=== PATIENT | male | born 1940 | race Caucasian/White ===

== ENCOUNTER 2017-11-15 13:48 | Emergency (ER) | payer MEDICARE, OTHER ==
--- NOTE | 2017-11-15 14:07 | ED ---
HPI Chest Pain - HPI Summary HPI Summary: This pt is a 77 y/o male presenting to [facility] c/o chest pressure for the past 4 days. Pt describes chest pressure as constant "gas in your chest that you can't bounce out." He notes he has intermittent "stings" sharp pain in his chest. Pt states his chest pain is not related to exertion it is most noticeable while at rest. He reports palpitations and nausea. Denies vomiting, diaphoresis. Pt notes he played golf this morning and still had chest pressure. PMHx afib, HTN, pacemaker, PR. During his past PR pt had severe chest pain underneath his ribs that was characterized as sharp. He thought it was gas but it ended up being an PR. He went to the medical lab assistant and was told his veins were cleared. His last chemical stress test was done by Dr. Guzman 3 months ago, that resulted normal. Pt is currently on Coumadin. - History of Current Complaint Chief Complaint: EDChestPainROMI Time Seen by Provider: 11/15/17 13:59 Hx Obtained From: Patient Onset/Duration: Started Days Ago, Still Present Timing: Lasting Days Current Severity: Mild Chest Pain Location: Diffuse Chest Pain Radiates: No Character: Pressure/Squeezing - Pressure, Sharp/Stabbing - "stings" intermittently Aggravating Factor(s): Nothing Alleviating Factor(s): Nothing Associated Signs and Symptoms: Positive: Chest Pain, Nausea, Palpitations. Negative: Shortness of Breath, Fever, Chills, Vomiting - Allergy/Home Medications Allergies/Adverse Reactions: Allergies Allergy/AdvReac Type Severity Reaction Status Date / Time bee venom protein (honey bee) Allergy Swelling Verified 11/15/17 14:08 PMH/Surg Hx/FS Hx/Imm Hx Cardiovascular History: Reports: Hx Angina - HX, Hx Atrial Fibrillation, Hx Hypercholesterolemia, Hx Hypertension, Hx Myocardial Infarction, Other Cardiovascular Problems/Disorders - Atrial Fib; Has a pacemaker Respiratory History: Reports: Hx Sleep Apnea - current CPAP user, compliant - Surgical History Surgery Procedure, Year, and Place: Tonsillectomy Infectious Disease History: No Infectious Disease History: Denies: Traveled Outside the [place] in Last 30 Days - Family History Known Family History: Positive: Hypertension Family History: Esophageal CA. Prostate CA. IBS - Social History Alcohol Use: Daily Alcohol Amount: 1-2/D Substance Use Type: Reports: None Smoking Status (MU): Never Smoked Tobacco Review of Systems Negative: Fever, Chills Positive: Palpitations, Chest Pain Negative: Shortness Of Breath Positive: Nausea. Negative: Vomiting All Other Systems Reviewed And Are Negative: Yes Physical Exam - Summary Physical Exam Summary: VITAL SIGNS: Reviewed. GENERAL: Patient is a well-developed and nourished male who is lying comfortable in the stretcher. Patient is not in any acute respiratory distress. HEAD AND FACE: No signs of trauma. No ecchymosis, hematomas or skull depressions. No sinus tenderness. EYES: PERRLA, EOMI x 2, No injected conjunctiva, no nystagmus. EARS: Hearing grossly intact. Ear canals and tympanic membranes are within normal limits. MOUTH: Oropharynx within normal limits. NECK: Supple, trachea is midline, no adenopathy, no JVD, no carotid bruit, no c- spine tenderness, neck with full ROM. CHEST: Symmetric, no tenderness at palpation LUNGS: Clear to auscultation bilaterally. No wheezing or crackles. CVS: Regular rate and rhythm, S1 and S2 present, no murmurs or gallops appreciated. ABDOMEN: Soft, non-tender. No signs of distention. No rebound, no guarding, and no masses palpated. Bowel sounds are normal. EXTREMITIES: FROM in all major joints, no edema, no cyanosis or clubbing. NEURO: Alert and oriented x 3. No acute neurological deficits. Speech is normal and follows commands. SKIN: Dry and warm Triage Information Reviewed: Yes Vital Signs On Initial Exam: Initial Vitals Temp Pulse Resp BP Pulse Ox 98.8 F 70 16 150/86 96 11/15/17 13:52 11/15/17 13:52 11/15/17 13:52 11/15/17 13:52 11/15/17 13:52 Vital Signs Reviewed: Yes Diagnostics - Vital Signs Vital Signs Temp Pulse Resp BP Pulse Ox 11/15/17 13:52 98.8 F 70 16 150/86 96 - Laboratory Result Diagrams: 11/15/17 14:27 11/15/17 14:27 Lab Statement: Any lab studies that have been ordered have been reviewed, and results considered in the medical decision making process. - Radiology Chest XR Xray Interpretation: No Acute Changes - IMPRESSION: No evidence for acute intrathoracic disease. Dr. Preciado has reviewed this report. Radiology Interpretation Completed By: Radiologist - EKG 13:54 Cardiac Rate: NL - at 70 bpm EKG Interpretation: ventricular paced rhythm at 70 bpm. EKG Comparison: No Significant Change - similar to prior on 09/03/10. Re-Evaluation - Re-Evaluation First Eval Re-Evaluation Time: 15:26 Comment: I reviewed lab and XR results with pt. Second troponin pending. Second Eval Re-Evaluation Time: 17:45 Comment: I reviewed the second trop negative results with the pt. He will be discharged home. Chest Pain Course/Dx - Course Assessment/Plan: This pt is a 77 y/o male presenting to [facility] c/o chest pressure for the past 4 days. Pt describes chest pressure as constant "gas in your chest that you can't bounce out." He notes he has intermittent "stings" sharp pain in his chest. Pt states his chest pain is not related to exertion it is most noticeable while at rest. He reports palpitations and nausea. Denies vomiting, diaphoresis. Pt notes he played golf this morning and still had chest pressure. PMHx afib, HTN, pacemaker, PR. During his past PR pt had severe chest pain underneath his ribs that was characterized as sharp. He thought it was gas but it ended up being an PR. He went to the medical lab assistant and was told his veins were cleared. His last chemical stress test was done by Dr. Guzman 3 months ago, that resulted normal. Pt is currently on Coumadin. Blood work without any significant abnormality. INR is 2.6 which is therapeutic. Glucose 137. First troponin is 0.01 and BMP is 178. Chest x-ray impression: No evidence for acute intrathoracic disease. Patient continues to be asymptomatic. He doesnt have any chest pain. Second troponin 4 hours apart is also 0.01. The patient continues to be asymptomatic. His HEART score is equal to 1. At this time I am comfortable sending the patient home since the patient had a stress test less than 3 months ago and it was negative. However I recommended for the patient to follow up with Dr. Guzman in the next 2 days. He was also recommended not to do any exertion or vigorous activity. The patient understands and agrees. He was also recommended to return to the emergency department if he develops any chest pain, shortness of breath or palpitations. The patient understands and agrees. He is hemodynamically stable , alert and oriented x3. - Chest Pain Differential Diagnosis/HQI/PQRI: Acute PR, ACS, Angina, CHF, Chest Wall, GI Disease, Lower Respiratory Infection - Diagnoses Provider Diagnoses: Chest pain Discharge - Sign-Out/Discharge Documenting (check all that apply): Patient Departure - Discharge home - Discharge Plan Condition: Stable Disposition: HOME Patient Education Materials: Chest Pain (ED) Referrals: La Nena Rojas MD [Primary Care Provider] - Additional Instructions: FOLLOW UP WITH YOUR PRIMARY CARE PROVIDER WITHIN ONE WEEK FOR HIGH BLOOD PRESSURE NOTED TODAY. RETURN TO THE ED FOR ANY NEW OR WORSENING SYMPTOMS. - Billing Disposition and Condition Condition: STABLE Disposition: Home - Attestation Statements Document Initiated by Santy: Yes Documenting Scribe: Nichole Avila Provider For Whom Santy is Documenting (Include Credential): Jonathan Preciado MD Scribe Attestation: Nichole Roque, scribed for Jonathan Preciado MD on 11/17/17 at 0751. Scribe Documentation Reviewed: Yes Provider Attestation: The documentation as recorded by the Nichole toscano accurately reflects the service I personally performed and the decisions made by , Jonathan Preciado MD
[2017-11-15 14:41] LABS: ABS Basophils 0.1 10^3/ul (0-0.2); ABS Eosinophils 0.1 10^3/ul (0-0.6); ABS Lymphocytes 1.3 10^3/ul (1.0-4.8); ABS Monocytes 0.9 10^3/ul (0-0.8); ABS Neutrophils 5.3 10^3/ul (1.5-7.7); ABS Nucleated RBC 0 10^3/ul; Eosinophil % 1.1 % (0-6); Hematocrit 41 % (42-52); Hemoglobin 14.1 g/dl (14.0-18.0); Lymphocyte % 17.3 % (25-47); Mean Corpuscular HGB Conc 34 g/dl (31-36); Mean Corpuscular Hemoglobin 33 pg (27-31); Mean Corpuscular Volume 98 fL (80-94); Mean Platelet Volume 8.4 um3 (7.4-10.4); Nucleated Red Blood Cells % 0.1; Platelet Count 207 10^3/ul (150-450); Red Blood Count 4.23 10^6/ul (4.00-5.40); Red Cell Distribution Width 13 % (10.5-15); White Blood Count 7.6 10^3/ul (3.5-10.8)
[2017-11-15 14:48] LABS: INR 2.6 (0.77-1.02)
[2017-11-15 15:03] LABS: EGFR Non-African American 75.5 (>60)
[2017-11-15 15:12] LABS: Urine Appearance Clear; Urine Blood Negative (Negative); Urine Color Yellow; Urine Ketones Negative (Negative); Urine Protein Negative (Negative); Urine Specific Gravity 1.011 (1.010-1.030); Urine Urobilinogen Negative (Negative)
--- NOTE | 2017-11-15 15:14 | RAD ---
Indication: Chest pressure this morning that has subsided. History of myocardial infarction. Atrial fibrillation. Hypertension. Comparison: September 03, 2010 Technique: Upright AP 1449 hours Report: RIGHT atrial and RIGHT ventricular level pacemaker leads. Mild cardiomegaly. Unremarkable central pulmonary vasculature and mediastinal contours. No focal pulmonary lesion, compelling alveolar consolidation, pleural effusion, pneumothorax. IMPRESSION: #. No evidence for acute intrathoracic disease.
[2017-11-15 18:04] VITALS: BP 148/84
== END 2017-11-15 18:16 | disposition home or self-care (01) ==
LOC: ED 13:48
DX: R07.89 Other chest pain (principal); I48.91 Unspecified atrial fibrillation; I25.2 Old myocardial infarction; I10 Essential (primary) hypertension; Z95.0 Presence of cardiac pacemaker; Z79.01 Long term (current) use of anticoagulants
CPT/HCPCS: 36415; 71045; 80053; 81003; 82550; 82553; 83605; 83735; 83880; 84443; 84484; 85025; 85610; 85730; 93005; 99283